=== PATIENT | male | born 1955 | race Caucasian/White ===

== ENCOUNTER → 2016-11-17 | Outpatient (CLI) | payer OTHER ==
[~2016-11-17] MED LIST: ACET-1311 PO; ARIP30TA3 PO; ATV/1 PO; CALC200T PO; CARB200T PO; CGN1 PO; CLON2TAB3 PO; CTP/1 PO; LEVO200T6 PO; LEVO75TA5 PO; LITH300T2 PO; MAGN400T6 PO; MAGNSUS5 PO; MULT-506 PO; NEOM-25 TP; POLY335019 PO; PRLSR20 PO; SENN-65 PO; THIO100T PO; [UNRECOGNIZED DRUG - OTHER] PO
[2016-11-17 11:15] LABS: BASO % 0.4 %; BASO ABS # 0.02 K/uL (0-0.2); COMPLETE YES; EOS % 4.2 %; HEMATOCRIT 36.1 % (42-52); IG% 0.6 %; LYMPH % 20.5 %; LYMPH ABS # 1.03 K/uL (1.2-3.4); MEAN CORPUSCULAR HEMOGLOBIN 31.5 pg (25-34); MEAN CORPUSCULAR HGB CONC 33.5 g/dl (32-36); MEAN PLATELET VOLUME 10.3 fL (7.4-10.4); MONO % 11.1 %; NEUT % 63.2 %; PLATELET COUNT 189 K/uL (130-400); RED BLOOD COUNT 3.84 M/uL (4.7-6.1); WHITE BLOOD COUNT 5.03 K/uL (4.8-10.8)
[2016-11-17 11:27] LABS: ALT/SGPT 29 U/L (12-78); AST/SGOT 12 U/L (15-37); BLOOD UREA NITROGEN 17 mg/dl (7-18); BUN/CREATININE RATIO 14.4 (10-20); CALCIUM 9.2 mg/dl (8.5-10.1); CARBON DIOXIDE 29 mmol/L (21-32); CHLORIDE 107 mmol/L (98-107); GLUCOSE 100 mg/dl (70-99); SODIUM 144 mmol/L (136-145)
[2016-11-17 11:30] LABS: ALB/GLOB RATIO 1.1 (0.9-2); ALKALINE PHOSPHATASE 61 U/L (45-117)
[2016-11-17 11:35] LABS: LITHIUM 0.7 mMOL/L (0.6-1.2)
== END | disposition home or self-care (01) ==
LOC: C.LABBC 08:15
PROVIDERS: ATTEND Psychiatry & Neurology Psychiatry
DX: F20.9 Schizophrenia, unspecified (principal); F42.9 Obsessive-compulsive disorder, unspecified; D84.9 Immunodeficiency, unspecified

== ENCOUNTER → 2017-08-02 | Outpatient (CLI) | payer OTHER ==
[~2017-08-02] MED LIST changes: +BENZ-89 PO; -CGN1 PO
[2017-08-02 11:11] LABS: BASO % 0.5 %; BASO ABS # 0.02 K/uL (0-0.2); COMPLETE YES; EOS % 6.6 %; HEMATOCRIT 36.8 % (42-52); IG% 0.9 %; LYMPH % 22.2 %; LYMPH ABS # 0.97 K/uL (1.2-3.4); MEAN CELL VOLUME 96.1 fL (80-100); MEAN CORPUSCULAR HEMOGLOBIN 31.3 pg (25-34); MEAN CORPUSCULAR HGB CONC 32.6 g/dl (32-36); MEAN PLATELET VOLUME 10.2 fL (7.4-10.4); MONO % 8.5 %; NEUT % 61.3 %; PLATELET COUNT 176 K/uL (130-400); RED BLOOD COUNT 3.83 M/uL (4.7-6.1); WHITE BLOOD COUNT 4.37 K/uL (4.8-10.8)
[2017-08-02 11:30] LABS: BLOOD UREA NITROGEN 24 mg/dl (7-18); CARBON DIOXIDE 31 mmol/L (21-32); CHLORIDE 105 mmol/L (98-107); CREATININE 1.16 mg/dl (0.60-1.40); POTASSIUM 3.8 mmol/L (3.5-5.1); SODIUM 140 mmol/L (136-145)
== END | disposition home or self-care (01) ==
LOC: C.LABBC 08:19
PROVIDERS: ATTEND Psychiatry & Neurology Psychiatry
DX: E03.9 Hypothyroidism, unspecified (principal); F20.9 Schizophrenia, unspecified; F42.9 Obsessive-compulsive disorder, unspecified

== ENCOUNTER → 2017-09-04 | Outpatient (CLI) | payer OTHER ==
[2017-09-04 11:06] LABS: BASO % 0.6 %; BASO ABS # 0.03 K/uL (0-0.2); COMPLETE YES; EOS % 6.2 %; HEMATOCRIT 37.8 % (42-52); IG% 0.6 %; LYMPH % 20.6 %; LYMPH ABS # 1.06 K/uL (1.2-3.4); MEAN CELL VOLUME 95.2 fL (80-100); MEAN CORPUSCULAR HEMOGLOBIN 31.7 pg (25-34); MEAN CORPUSCULAR HGB CONC 33.3 g/dl (32-36); MEAN PLATELET VOLUME 10.5 fL (7.4-10.4); MONO % 10.1 %; NEUT % 61.9 %; PLATELET COUNT 181 K/uL (130-400); RED BLOOD COUNT 3.97 M/uL (4.7-6.1); WHITE BLOOD COUNT 5.14 K/uL (4.8-10.8)
[2017-09-04 11:24] LABS: ALT/SGPT 32 U/L (12-78); BLOOD UREA NITROGEN 19 mg/dl (7-18); BUN/CREATININE RATIO 15.5 (10-20); CALCIUM 9.1 mg/dl (8.5-10.1); CARBON DIOXIDE 30 mmol/L (21-32); CHLORIDE 103 mmol/L (98-107); CREATININE 1.19 mg/dl (0.60-1.40); GLUCOSE 129 mg/dl (70-99); POTASSIUM 3.8 mmol/L (3.5-5.1); SODIUM 139 mmol/L (136-145)
[2017-09-04 11:35] LABS: ALKALINE PHOSPHATASE 78 U/L (45-117); AST/SGOT 16 U/L (15-37)
== END | disposition home or self-care (01) ==
LOC: C.LABBC 08:30
PROVIDERS: ATTEND Physician Assistant Medical
DX: I10 Essential (primary) hypertension (principal); E03.9 Hypothyroidism, unspecified; R60.9 Edema, unspecified

== ENCOUNTER → 2017-11-14 | Outpatient (CLI) | payer OTHER ==
[2017-11-14 14:05] LABS: BLOOD UREA NITROGEN 17 mg/dl (7-18); CALCIUM 9.8 mg/dl (8.5-10.1); CARBON DIOXIDE 28 mmol/L (21-32); CREATININE 1.33 mg/dl (0.60-1.40); GLUCOSE 100 mg/dl (70-99); POTASSIUM 4.1 mmol/L (3.5-5.1); SODIUM 141 mmol/L (136-145)
== END | disposition home or self-care (01) ==
LOC: C.LABBC 08:46
PROVIDERS: ATTEND Physician Assistant Medical
DX: Z00.00 Encounter for general adult medical examination without abnormal findings (principal); N28.9 Disorder of kidney and ureter, unspecified; I10 Essential (primary) hypertension

== ENCOUNTER 2018-01-09 13:16 | Inpatient (IN) | payer OTHER ==
[~2018-01-09] VITALS: Ht 182.9 cm; Wt 78.1 kg
[2018-01-09] MEDS ORDERED: LORAZEPAM 2 MG/ML 1 ML VIAL IM STA (13:27)
[2018-01-09] MEDS ORDERED: HALOPERIDOL LACTATE 5 MG/ML 1 ML VIAL IM STA (13:27)
[2018-01-09] MEDS ORDERED: SODIUM CHLORIDE 0.9% 1000ML 500 ML IV STA (13:27)
--- NOTE | 2018-01-09 13:35 | EMERGENCY ROOM VISIT NOTE ---
History Report prepared by Misael: Ever Fall Under the Supervision of: Dr. Gerber Garcia M.D. First contact with patient: 13:20 Chief Complaint: MENTAL HEALTH EVALUATION History of Present Illness This HPI is significantly limited secondary to the patient's intellectual disability, MR. The patient is a 62 year old male who presents to the Emergency Room for increased combativeness and aggression per his home health nurses. The nursing staff states that he has been refusing to take his medications. The home nurses also mentioned that he vomited this morning, and appeared to be off balance, weak, and has been lethargic recently. These symptoms are unusual as compared to his baseline. The patient does live in his own apartment, but has home nurses who are there 07/05. Source of History: detention notes, nursing staff History Limited By: other ( intellectual disability, MR) Onset: This morning Quality: other (Combativeness/aggression) Associated Symptoms: + vomiting Review of Systems ROS unobtainable secondary to intellectual disability and MR. Past Medical & Surgical Medical Problems: (1) Encephalopathy (2) Traumatic brain injury Family History Unobtainable due to AMS Social History Smoking Status: Never Smoker Marital Status: single Occupation Status: disabled Current/Historical Medications Scheduled Benztropine Mesylate (Cogentin), 1 MG PO BID Carbamazepine (Tegretol), 600 MG PO BID Clonazepam (Klonopin), 2 MG PO BID Clonidine Hcl (Catapres), 0.1 MG PO BID Levothyroxine Sodium (Levothyroxine Sodium), 200 MCG PO DAILY Levothyroxine Sodium (Levothyroxine Sodium), 75 MCG PO DAILY Wynot Carbonate (Wynot Carbonate), 600 MG PO QPM Magnesium Oxide (Mag-Ox), 400 MG PO BIDM Multivitamin (Multivitamin), 1 TAB PO DAILY Olanzapine (Zyprexa), 20 MG PO DAILY Omeprazole (Prilosec), 20 MG PO DAILY Senna/Docusate Sod (Senokot S), 1 TAB PO BID Thioridazine Hcl (Mellaril), 100 MG PO BID Thioridazine Hcl (Mellaril), 500 MG PO QPM Scheduled PRN Acetaminophen (Tylenol), 650 MG PO Q4 PRN for Pain or Fever Lorazepam (Ativan), 1.5 MG PO Q4 PRN for Anxiety/Agitation Uzslwafb-Ywwpgknzsc-Qkhjdyxxf (Triple Antibiotic), 1 APPL TP BID PRN for PREVENTION Allergies Coded Allergies: Chlorpromazine (Verified Allergy, Unknown, unk, 01/09/18) Gabapentin (Verified Allergy, Unknown, unk, 01/09/18) Lactose Intolerance (GI) (Verified Allergy, Unknown, unk, 01/09/18) Levofloxacin (Verified Allergy, Unknown, unk, 01/09/18) Oxcarbazepine (Verified Allergy, Unknown, unk, 01/09/18) Valproic Acid (Verified Allergy, Unknown, unk, 01/09/18) Physical Exam Vital Signs Date Time Temp Pulse Resp B/P (MAP) Pulse Ox O2 Delivery O2 Flow Rate FiO2 01/09/18 17:23 80 24 123/62 95 Room Air 01/09/18 16:24 74 19 98/54 92 Room Air 01/09/18 15:11 83 21 137/75 94 Room Air 01/09/18 14:14 88 01/09/18 14:12 Room Air 01/09/18 13:22 37.3 85 18 112/85 98 Room Air Physical Exam GENERAL: Patient is in no acute distress. HEENT: No acute trauma, normocephalic atraumatic, mucous membranes moist, no nasal congestion, no scleral icterus. NECK: No stridor, no adenopathy, no meningismus, trachea is midline. LUNGS: Clear to auscultation bilaterally, no wheeze, no rhonchi, breath sounds equal. HEART: Without murmurs gallops or rubs, regular rate and rhythm. ABDOMEN: Soft, nontender, bowel sounds positive, no hernias, no peritonitis. EXTREMITIES: No cyanosis or edema, full range of motion of all the joints without pain or difficulty, no signs for acute trauma. NEUROLOGIC: Mental retardation noted. Moving all extremities. Patient yells; "OK " over and over again. He is occasionally aggressive towards staff. SKIN: No rash, no jaundice, no diaphoresis. Medical Decision & Procedures Laboratory Results Test 01/09/18 13:55 01/09/18 14:25 Immature Granulocyte % (Auto) 0.8 % White Blood Count 5.14 K/uL (4.8-10.8) Red Blood Count 3.53 M/uL (4.7-6.1) Hemoglobin 11.2 g/dL (14.0-18.0) Hematocrit 33.0 % (42-52) Mean Corpuscular Volume 93.5 fL (80-100) Mean Corpuscular Hemoglobin 31.7 pg (25-34) Mean Corpuscular Hemoglobin Concent 33.9 g/dl (32-36) Platelet Count 147 K/uL (130-400) Mean Platelet Volume 9.4 fL (7.4-10.4) Neutrophils (%) (Auto) 78.0 % Lymphocytes (%) (Auto) 13.4 % Monocytes (%) (Auto) 7.0 % Eosinophils (%) (Auto) 0.6 % Basophils (%) (Auto) 0.2 % Neutrophils # (Auto) 4.01 K/uL (1.4-6.5) Lymphocytes # (Auto) 0.69 K/uL (1.2-3.4) Monocytes # (Auto) 0.36 K/uL (0.11-0.59) Eosinophils # (Auto) 0.03 K/uL (0-0.5) Basophils # (Auto) 0.01 K/uL (0-0.2) Immature Granulocyte # (Auto) 0.04 K/uL (0.00-0.02) Magnesium Level 2.4 mg/dl (1.8-2.4) Total Creatine Kinase 624 U/L (39-308) Troponin I < 0.015 ng/ml (0-0.045) Thyroid Stimulating Hormone (TSH) 0.987 uIu/ml (0.300-4.500) Free Thyroxine 1.06 ng/dl (0.80-1.60) Wynot Level 0.9 mMOL/L (0.6-1.2) Urine Color YELLOW Urine Appearance CLEAR (CLEAR) Urine pH 6.5 (4.5-7.5) Urine Specific Sage 1.010 (1.000-1.030) Urine Protein TRACE (NEG) Urine Glucose (UA) NEG (NEG) Urine Ketones TRACE (NEG) Urine Occult Blood NEG (NEG) Urine Nitrite NEG (NEG) Urine Bilirubin NEG (NEG) Urine Urobilinogen NEG (NEG) Urine Leukocyte Esterase NEG (NEG) Urine RBC 0-4 /hpf (0-4) Urine WBC 1-5 /hpf (0-5) Urine Epithelial Cells 10-20 /lpf (0-5) Urine Bacteria NEG (NEG) Urine Mucus PRESENT (NONE PRSENT) Urine Opiates Screen NEG (NEG) Urine Methadone, Qualitative NEG (NEG) Urine Barbiturates NEG (NEG) Urine Phencyclidine (PCP) Level NEG (NEG) Ur Amphetamine/Methamphetamine NEG (NEG) MDMA (Ecstasy) Screen NEG (NEG) Urine Benzodiazepines Screen NEG (NEG) Urine Cocaine Metabolite NEG (NEG) Urine Marijuana (THC) NEG (NEG) Laboratory results reviewed by me. Medications Administered Medications (Trade) Dose Ordered Sig/Amita Route Start Time Stop Time Status Last Admin Dose Admin Sodium Chloride 500 ml @ 999 mls/hr Q31M STAT IV 01/09/18 13:27 01/09/18 13:57 DC 01/09/18 14:10 999 MLS/HR Haloperidol Lactate (Haldol Inj) 5 mg NOW STAT IM 01/09/18 13:27 01/09/18 13:37 DC 01/09/18 13:52 5 MG Lorazepam (Ativan Inj) 1 mg NOW STAT IM 01/09/18 13:27 01/09/18 13:37 DC 01/09/18 13:52 1 MG Ceftriaxone Sodium (Rocephin Inj) 1 gm NOW STAT IV 01/09/18 15:20 01/09/18 15:21 DC 01/09/18 15:43 1 GM Sodium Chloride 500 ml @ 999 mls/hr Q31M STAT IV 01/09/18 16:50 01/09/18 17:20 DC 01/09/18 17:05 999 MLS/HR ECG Per My Interpretation Indication: altered mental status Rate (beats per minute): 83 Rhythm: normal sinus Findings: other (Baseline artifact present, no SHAE, no PVCs) ED Course 1323: The patient was evaluated in room A7. A complete history and physical exam was performed. Patient did receive 5 mg of IM Haldol, 1 mg of IM Ativan. Patient received IV saline, 2/500 cc boluses. He received IV ceftriaxone 1 g. I reassessed the patient, he is resting and more cooperative. The patient does require hospitalization. I discussed the case with the on- call [facility] hospitalist. Medical Decision Differential diagnosis includes; Stroke, infection, UTI, bowel obstruction, anaemia, electrolyte imbalance, pneumonia, viral illness, medication noncompliance. There is no leukocytosis or concerning anemia. No significant electrolyte abnormality. There was a mild elevation to the creatinine, this is likely consistent with some dehydration. No evidence for hepatitis. The patient appears to be in a euthyroid state. Wynot level is not toxic. Urine tox is negative. Urinalysis does not show evidence for infection. Blood cultures are pending. Chest film does not show pneumonia or CHF, no mediastinal widening. Brain CT shows no acute bleed or mass-effect, a sinusitis was seen. Abdominal and pelvis CT show some constipation, no bowel obstruction. EKG shows a sinus rhythm, no acute ischemia. Cardiac enzyme testing 1 is not consistent with acute cardiac injury. The patient does present with a change in mental status, some weakness and vomiting. He did become somewhat uncooperative here and was aggressive. He received IM Haldol and IM Ativan. He received 2 boluses of IV saline, 500 cc. He did receive IV ceftriaxone for the diagnosis of sinusitis. The patient requires hospitalization. The cause for the mental status decline is unclear although, the sinusitis and dehydration could be the cause. I did discuss the case with case management. The on-call hospitalist was consulted and we discussed the case. Medication Reconcilliation Current Medication List: was personally reviewed by me Blood Pressure Screening Patient's blood pressure: Normal blood pressure Impression Primary Impression: Change in mental status Additional Impressions: Dehydration Vomiting Weakness Sinusitis Scribe Attestation The scribe's documentation has been prepared under my direction and personally reviewed by me in its entirety. I confirm that the note above accurately reflects all work, treatment, procedures, and medical decision making performed by me. Departure Information Dispostion Being Evaluated By Hospitalist Referrals Liberty Graff PA-C (PCP) Patient Instructions My [facility] Problem Qualifiers
[2018-01-09] MEDS ORDERED: ZYP20 PO (14:01)
[2018-01-09 14:18] LABS: BASO % 0.2 %; BASO ABS # 0.01 K/uL (0-0.2); EOS % 0.6 %; EOS ABS # 0.03 K/uL (0-0.5); HEMOGLOBIN 11.2 g/dL (14.0-18.0); IG# 0.04 K/uL (0.00-0.02); LYMPH % 13.4 %; LYMPH ABS # 0.69 K/uL (1.2-3.4); MEAN CELL VOLUME 93.5 fL (80-100); MEAN CORPUSCULAR HEMOGLOBIN 31.7 pg (25-34); MEAN CORPUSCULAR HGB CONC 33.9 g/dl (32-36); MEAN PLATELET VOLUME 9.4 fL (7.4-10.4); MONO ABS # 0.36 K/uL (0.11-0.59); NEUT ABS # 4.01 K/uL (1.4-6.5); PLATELET COUNT 147 K/uL (130-400); RED CELL DISTRIBUTION WIDTH SD 44.8 fL (36.4-46.3); WHITE BLOOD COUNT 5.14 K/uL (4.8-10.8)
--- NOTE | 2018-01-09 14:31 | DIAGNOSTIC IMAGING REPORT ---
CHEST ONE VIEW PORTABLE CLINICAL HISTORY: 62 years-old Male presenting with EVALUATE ALTERED MENTAL STATUS/WEAKNESS. TECHNIQUE: Portable upright AP view of the chest was obtained. COMPARISON: 04/2016. FINDINGS: Atherosclerosis of aortic arch. Cardiac silhouette enlarged. Chronic elevation of the left hemidiaphragm. Pulmonary vascular prominence. Minimal basilar opacities. No pleural effusion or pneumothorax. Degenerative changes of the thoracic spine. Upper abdomen normal. IMPRESSION: 1. Cardiomegaly with pulmonary vascular prominence suggesting volume overload. No nancy pulmonary edema. 2. Bibasilar atelectasis. Electronically signed by: Yoel Chen M.D. 01/09/2018 2:30 PM Dictated Date/Time: 01/09/2018 2:29 PM
[2018-01-09 15:03] LABS: BLOOD UREA NITROGEN 20 mg/dl (7-18); GLUCOSE 101 mg/dl (70-99)
[2018-01-09 15:04] LABS: ALBUMIN 3.4 gm/dl (3.4-5.0); CALCIUM 8.6 mg/dl (8.5-10.1); CARBON DIOXIDE 29 mmol/L (21-32); CREATININE 1.51 mg/dl (0.60-1.40); POTASSIUM 3.8 mmol/L (3.5-5.1); SODIUM 137 mmol/L (136-145); TOTAL PROTEIN 7.1 gm/dl (6.4-8.2)
[2018-01-09 15:05] LABS: ALKALINE PHOSPHATASE 63 U/L (45-117); ALT/SGPT 32 U/L (12-78); AST/SGOT 33 U/L (15-37)
--- NOTE | 2018-01-09 15:09 | DIAGNOSTIC IMAGING REPORT ---
HEAD WITHOUT CONTRAST (CT) CLINICAL HISTORY: 62 years-old Male presenting with change in ms. TECHNIQUE: Multidetector CT imaging of the head was performed without the use of intravenous contrast. IV contrast: None. A dose lowering technique was used consistent with the principles of ALARA (as low as reasonably achievable). COMPARISON: None. CT DOSE (mGy.cm): The estimated cumulative dose is 821.00 mGycm. FINDINGS: [employer] topogram: Unremarkable. Proportional ventricular and sulcal prominence, likely age-related parenchymal volume loss. Brain parenchyma normal in appearance with preserved gonzalez-white differentiation. No mass effect or midline shift. No hemorrhage or acute territorial infarct. No extra-axial fluid collection. Mild mucosal thickening in the ethmoid air cells. Few aerated secretions in the left maxillary sinus. Calvarium intact. IMPRESSION: 1. No acute intracranial abnormality. 2. Aerated secretions in the left maxillary sinus with mucosal thickening in ethmoid air cells raises concern for acute sinusitis. Electronically signed by: Yoel Chen M.D. 01/09/2018 3:07 PM Dictated Date/Time: 01/09/2018 3:05 PM
--- NOTE | 2018-01-09 15:14 | DIAGNOSTIC IMAGING REPORT ---
ABD/PELVIS NO IV OR ORAL CONT CT DOSE: 1177.18 mGycm HISTORY: Pain ABD PAIN, POSSIBLE OBSTRUCTION, NO CONTRAST TECHNIQUE: Multiaxial CT images of the abdomen and pelvis were performed without contrast. A dose lowering technique was utilized adhering to the principles of ALARA. COMPARISON STUDY: None. FINDINGS: Small bilateral pleural effusions. Superimposed bibasilar interstitial and atelectatic change. There is a ventral hernia containing a segment of transverse colon. This is a nonobstructive finding. There is a right scrotal hernia containing at the cecum and appendix. This appears to be a nonobstructive finding. There is increased fecal load within the sigmoid descending and distal transverse colon. This consistent with a component of fecal stasis. No evidence for small bowel distention. Kidneys negative for hydronephrosis. IMPRESSION: 1. Increased fecal load within the sigmoid, descending, as well as distal transverse colon consistent with fecal stasis.. 2. Right scrotal hernia containing the cecum and appendix which is considered nonobstructing. 3. Small periumbilical and/or ventral hernia containing a short segment of transverse colon also considered to be nonobstructing. 4. Small bilateral pleural effusions with bibasilar atelectatic change. The above report was generated using voice recognition software. It may contain grammatical, syntax or spelling errors. Electronically signed by: Abdirahman Mckenzie M.D. 01/09/2018 3:12 PM Dictated Date/Time: 01/09/2018 3:06 PM
[2018-01-09] MEDS ORDERED: CEFTRIAXONE SOD INJ 1 GM ADDVIAL IV STA (15:20)
[2018-01-09] MEDS ORDERED: SODIUM CHLORIDE 0.9% 500ML 500 ML IV STA (16:50)
[2018-01-09 17:23] VITALS: O2SAT 95
[2018-01-09] MEDS ORDERED: ACETAMINOPHEN 325 MG TAB PO PRN (21:15)
[2018-01-09] MEDS: SODIUM CHLOR 0.45% + 20MEQ KCL 1,000 ML IV SCH (21:15)
--- NOTE | 2018-01-09 21:27 | HISTORY & PHYSICAL EXAMINATION ---
DATE OF ADMISSION: 01/09/2018 CHIEF COMPLAINT: Altered mental status. HISTORY OF PRESENT ILLNESS: History is unobtainable from the patient. His caregiver, while he is with the man generally 5 days a week, has not been with him until this evening for about the last 3 days, so he is not able to directly glean a lot, although he is very helpful overall. The ER does not have a lot of direct information because of the limitations above, and with the computer system being down, I am unable to access any old records, inpatient, outpatient or otherwise. He apparently over the last 2 or 3 weeks has been more tired. There has maybe been a slight decrease in his p.o. intake but the caregiver notes he never refuses water and then apparently today he was very tired, very sleepy and not acting like himself, so he was brought to the ER for further evaluation. Here, initially he was sleepy and fatigued and not responding well but then became very agitated and actually had to have Haldol and Ativan for chemical sedation for his safety and now is very sedate, although he does wake up during exam and swats at me a little bit and grumbles unintelligibly some. The unintelligible grumbling and the swatting the caregiver notes are not surprising given his baseline. REVIEW OF SYSTEMS: Otherwise unobtainable except for as above. PAST MEDICAL HISTORY: Obtainable only by the records provided by his caregiver, includes schizophrenia, hypothyroidism, GERD, OCD, pica, moderate mental retardation and constipation. MEDICATIONS: Omeprazole 20 mg daily, Synthroid 275 mcg daily, Catapres 0.1 p.o. b.i.d., Mag-Ox 400 mg daily, multivitamin daily, Klonopin 2 mg b.i.d., Tegretol 600 mg in the morning and 800 in the evening, Colace/senna 8.6/50 p.o. b.i.d., Mellaril 100 mg 8 a.m., 100 mg 2 p.m. and 500 mg 8 p.m., Cogentin 100 mg b.i.d., olanzapine 20 mg daily, Os-Estevan plus D b.i.d., lithium 600 mg at bedtime, Tylenol 650 q. 4 p.r.n., milk of magnesia daily p.r.n., lorazepam 1.5 mg q. 4 hours p.r.n. anxiety. SOCIAL HISTORY: The best that I can obtain is that he lives at home with constant caregiver support, unable to obtain prior history as far as smoking or alcohol use. FAMILY HISTORY: Entirely unobtainable. SURGICAL HISTORY: Unobtainable, although at least his medical summary sheet provided by the caregiver does not list any significant surgical problems. ALLERGIES: LISTED DEPAKOTE, LACTULOSE, LEVAQUIN, NEURONTIN, THORAZINE AND TRILEPTAL. PHYSICAL EXAMINATION: VITAL SIGNS: Stable, please see the chart. HEENT: Normocephalic, atraumatic. Mucous membranes may be slightly dry. CARDIOVASCULAR: Regular without rubs, murmurs or gallops. LUNGS: Clear to auscultation bilaterally. No rales, rhonchi or wheezes, with good effort. ABDOMEN: Soft, nondistended, nontender, no masses or organomegaly. EXTREMITIES: Without cyanosis, clubbing or edema. No calf tenderness. SKIN: Shows no rashes, no pallor or icterus. NEUROLOGIC: Shows cranial nerves II-XII to be grossly intact. Gross motor and sensory are intact. He has good resting muscle tone, although he tenses up voluntarily at times during exam, it is not constant, he is not rigid, and his neck is supple whenever he is not resisting. MUSCULOSKELETAL: Exam yields no gross lesions. MENTAL STATUS: Unable to be assessed, otherwise as above. LABORATORIES AND DIAGNOSTICS: Not directly available for my review at the time of dictation due to the computer system being down. I reviewed extensively what the ER doc was able to sign out and obviously full review will be available shortly. However, head and chest imaging were negative. His creatinine was 1.5 which is higher than his baseline and the remainder of his lab workup was unremarkable. ASSESSMENT AND PLAN: 1. Altered mental status. This appears most likely to be a metabolic encephalopathy given his poor p.o. intake and his creatinine being higher than baseline with no other significant findings of infection or medication changes. It is most likely a metabolic encephalopathy due to dehydration. Start him on gentle IV fluids, follow up labs in the morning, follow serial exams. Obviously vigilance for any type of signs or symptoms of infection, ongoing serial exams, follow up on his blood and urine cultures, and follow his CBC. 2. Psychosis. Likely his psychosis and his baseline of mental retardation make it more likely that he would be able to get encephalopathic with a more minor insult. We will continue his home meds. 3. Hypertension. Continue home meds. 4. Hypothyroidism. Continue home meds. 5. Deep venous thrombosis prophylaxis. We will follow how he does. Hopefully early ambulation, but if he is not moving well by tomorrow, we will want to initiate subcu Lovenox or subcu heparin depending on his creatinine. 6. Gastroesophageal reflux disease. Continue omeprazole.
[2018-01-10] MEDS: CLONIDINE HCL 0.1 MG TAB PO SCH ×3 (00:21→20:00)
[2018-01-10] MEDS: BENZTROPINE MESYLATE 1 MG TAB PO SCH ×3 (00:22→20:10)
[2018-01-10] MEDS: CLONAZEPAM 1 MG TAB PO SCH ×4 (00:22→20:09)
[2018-01-10] MEDS: DOCUSATE SODIUM/SENNA 50/8.6MG TAB PO SCH ×3 (00:22→20:11)
[2018-01-10] MEDS: LITHIUM CARBONATE 300 MG TAB PO SCH ×2 (00:22→02:01)
[2018-01-10] MEDS: CARBAMAZEPINE 200 MG TAB PO SCH ×3 (00:22→08:18)
[2018-01-10] MEDS ORDERED: LORAZEPAM 2 MG/ML 1 ML VIAL IV PRN (02:00)
[2018-01-10] MEDS ORDERED: OLANZAPINE ZYDIS 5 MG ORALLY DIS. TAB PO PRN (02:00)
[2018-01-10] MEDS ORDERED: LORAZEPAM INJ 1 MG in SYRINGE 0.5 ML IV PRN (03:45)
[2018-01-10] MEDS: MAGNESIUM OXIDE 400 MG TAB PO SCH (08:16)
[2018-01-10] MEDS: LEVOTHYROXINE 137 MCG TAB PO SCH (08:16)
[2018-01-10] MEDS: PANTOprazole SOD 40 MG TAB PO SCH (08:17)
[2018-01-10] MEDS: CALCIUM 600MG + VIT D 400 IU TAB PO SCH ×2 (08:17→16:51)
[2018-01-10] MEDS: OLANZAPINE 20 MG TAB PO SCH (08:17)
[2018-01-10] MEDS: MULTIVITAMIN TAB PO SCH (08:18)
[2018-01-10] MEDS: SODIUM CHLOR 0.45% + 20MEQ KCL 1,000 ML IV SCH (08:19)
[2018-01-10] MEDS ORDERED: NURSING VERBAL MED ORDER ONE (09:15)
[2018-01-10 09:45] LABS: HEMATOCRIT 30.9 % (42-52); HEMOGLOBIN 10.5 g/dL (14.0-18.0); MEAN CELL VOLUME 93.4 fL (80-100); MEAN CORPUSCULAR HEMOGLOBIN 31.7 pg (25-34); MEAN PLATELET VOLUME 9.6 fL (7.4-10.4); PLATELET COUNT 134 K/uL (130-400); RED CELL DISTRIBUTION WIDTH CV 12.9 % (11.5-14.5); RED CELL DISTRIBUTION WIDTH SD 43.6 fL (36.4-46.3); WHITE BLOOD COUNT 5.47 K/uL (4.8-10.8)
[2018-01-10 10:10] LABS: ALT/SGPT 34 U/L (12-78); BLOOD UREA NITROGEN 14 mg/dl (7-18); CALCIUM 8.1 mg/dl (8.5-10.1); CARBON DIOXIDE 28 mmol/L (21-32); CREATININE 1.19 mg/dl (0.60-1.40); GLUCOSE 92 mg/dl (70-99); POTASSIUM 3.8 mmol/L (3.5-5.1); SODIUM 139 mmol/L (136-145)
[2018-01-10 10:13] LABS: ALKALINE PHOSPHATASE 56 U/L (45-117); AST/SGOT 38 U/L (15-37); TOTAL PROTEIN 6.5 gm/dl (6.4-8.2)
--- NOTE | 2018-01-10 12:46 | Hospitalist Progress Note ---
Hospitalist Progress Note Date of Service Jan 10, 2018. (Adrianna Bond ., PA-C) Subjective Pt evaluation today including: conversation w/ patient, physical exam, lab review, review of studies, review of inpatient medication list Patient sleeping in bed. No signs of acute distress. Did not wake due to agitation/restlessness overnight. ROS not completed due to patient's status. Architectural Design Professor at bedside States patient did not eat/drink for 24 hours and had 1 episode of vomiting. Family is not in the picture. Architectural Design Professor unsure whether agency willing to do 24/ care vs needs placement. (Adrianna Bond ., KASI-C) Medications Current Inpatient Medications Medications (Trade) Dose Ordered Sig/Amita Route Start Time Stop Time Status Last Admin Dose Admin Acetaminophen (Tylenol Tab) 650 mg Q4H PRN PO 01/09/18 21:15 02/08/18 21:14 Pantoprazole Sodium (Protonix Tab) 40 mg QAM PO 01/10/18 08:00 02/09/18 08:59 01/10/18 08:17 40 MG Levothyroxine Sodium (Synthroid Tab) 274 mcg DAILYBB PO 01/10/18 06:30 02/09/18 06:59 01/10/18 08:16 274 MCG Magnesium Oxide (Mag-Ox Tab) 400 mg DAILY PO 01/10/18 08:00 02/09/18 08:59 01/10/18 08:16 400 MG Multivitamins (Multivitamin Tab) 1 tab QAM PO 01/10/18 08:00 02/09/18 08:59 01/10/18 08:18 1 TAB Clonazepam (Klonopin Tab) 2 mg BID PO 01/09/18 21:15 02/08/18 21:14 01/10/18 08:22 2 MG Carbamazepine (Tegretol Tab) 600 mg QAM PO 01/10/18 08:00 02/09/18 08:59 01/10/18 08:18 600 MG Carbamazepine (Tegretol Tab) 800 mg HS PO 01/09/18 21:00 02/08/18 20:59 01/10/18 02:02 800 MG Senna/Docusate Sodium (Senokot S Tab) 1 tab BID PO 01/09/18 21:00 02/08/18 20:59 01/10/18 08:18 1 TAB Benztropine Mesylate (Cogentin Tab) 1 mg BID PO 01/09/18 21:00 02/08/18 20:59 01/10/18 08:16 1 MG Olanzapine (Zyprexa Tab) 20 mg DAILY PO 01/10/18 08:00 02/09/18 08:59 01/10/18 08:17 20 MG Calcium/Vitamin D (Caltrate Plus Tab) 1 tab BID17 PO 01/10/18 09:00 02/09/18 08:59 01/10/18 08:17 1 TAB [place] Carbonate ([place] Carbonate Tab) 600 mg HS PO 01/09/18 21:00 02/08/18 20:59 01/10/18 02:01 600 MG Clonidine HCl (Catapres Tab) 0.1 mg BID PO 01/09/18 21:00 02/08/18 20:59 01/10/18 08:18 0.1 MG Lorazepam (Ativan Inj) 1 mg BID PRN IV 01/10/18 02:00 02/09/18 01:59 Olanzapine (Zyprexa Zydis Od Tab) 1.25 mg HS PRN PO 01/10/18 02:00 02/09/18 01:59 Lorazepam 1 mg/ Syringe 1 ml @ 1 mls/min BID PRN IV 01/10/18 03:45 02/09/18 03:44 Thioridazine HCl (Thioridazine HCl) 100 mg 0800,1400 PO 01/10/18 14:00 02/09/18 13:59 Thioridazine HCl (Thioridazine HCl) 500 mg DAILY@2000 PO 01/10/18 20:00 02/09/18 19:59 (Adrianna Bond, KASSANDRAC) Objective Vital Signs Date Time Temp Pulse Resp B/P (MAP) Pulse Ox O2 Delivery O2 Flow Rate FiO2 01/10/18 08:00 Room Air 01/10/18 00:00 Room Air 01/09/18 17:23 80 24 123/62 95 Room Air 01/09/18 16:24 74 19 98/54 92 Room Air 01/09/18 15:11 83 21 137/75 94 Room Air 01/09/18 14:14 88 01/09/18 14:12 Room Air 01/09/18 13:22 37.3 85 18 112/85 98 Room Air (Adrianna Bond, PA-C) Physical Exam General Appearance: no apparent distress Eyes: normal inspection, PERRL ENT: hearing grossly normal Neck: supple Respiratory/Chest: lungs clear, no respiratory distress, no accessory muscle use Cardiovascular: regular rate, rhythm Abdomen: normal bowel sounds, non tender, soft Extremities: no pedal edema, no calf tenderness Neurologic/Psychiatric: + pertinent finding (sleeping ) Skin: normal color, warm/dry, no rash (Adrianna Bond, PA-C) Laboratory Results Last 24 Hours Test 01/09/18 13:55 01/09/18 14:25 01/10/18 09:07 White Blood Count 5.14 K/uL 5.47 K/uL Red Blood Count 3.53 M/uL 3.31 M/uL Hemoglobin 11.2 g/dL 10.5 g/dL Hematocrit 33.0 % 30.9 % Mean Corpuscular Volume 93.5 fL 93.4 fL Mean Corpuscular Hemoglobin 31.7 pg 31.7 pg Mean Corpuscular Hemoglobin Concent 33.9 g/dl 34.0 g/dl Platelet Count 147 K/uL 134 K/uL Mean Platelet Volume 9.4 fL 9.6 fL Neutrophils (%) (Auto) 78.0 % Lymphocytes (%) (Auto) 13.4 % Monocytes (%) (Auto) 7.0 % Eosinophils (%) (Auto) 0.6 % Basophils (%) (Auto) 0.2 % Neutrophils # (Auto) 4.01 K/uL Lymphocytes # (Auto) 0.69 K/uL Monocytes # (Auto) 0.36 K/uL Eosinophils # (Auto) 0.03 K/uL Basophils # (Auto) 0.01 K/uL RDW Standard Deviation 44.8 fL 43.6 fL RDW Coefficient of Variation 13.0 % 12.9 % Immature Granulocyte % (Auto) 0.8 % Immature Granulocyte # (Auto) 0.04 K/uL Sodium Level 137 mmol/L 139 mmol/L Potassium Level 3.8 mmol/L 3.8 mmol/L Chloride Level 103 mmol/L 107 mmol/L Carbon Dioxide Level 29 mmol/L 28 mmol/L Anion Gap 5.0 mmol/L 4.0 mmol/L Blood Urea Nitrogen 20 mg/dl 14 mg/dl Creatinine 1.51 mg/dl 1.19 mg/dl Estimated GFR () 56.2 74.9 Estimated GFR (Non- 48.5 64.6 BUN/Creatinine Ratio 13.2 12.0 Random Glucose 101 mg/dl 92 mg/dl Calcium Level 8.6 mg/dl 8.1 mg/dl Magnesium Level 2.4 mg/dl Total Bilirubin 0.3 mg/dl 0.2 mg/dl Aspartate Amino Transf (AST/SGOT) 33 U/L 38 U/L Alanine Aminotransferase (ALT/SGPT) 32 U/L 34 U/L Alkaline Phosphatase 63 U/L 56 U/L Total Creatine Kinase 624 U/L Troponin I < 0.015 ng/ml Total Protein 7.1 gm/dl 6.5 gm/dl Albumin 3.4 gm/dl 3.0 gm/dl Globulin 3.7 gm/dl 3.5 gm/dl Albumin/Globulin Ratio 0.9 0.9 Thyroid Stimulating Hormone (TSH) 0.987 uIu/ml Free Thyroxine 1.06 ng/dl [place] Level 0.9 mMOL/L Urine Color YELLOW Urine Appearance CLEAR Urine pH 6.5 Urine Specific Booker 1.010 Urine Protein TRACE Urine Glucose (UA) NEG Urine Ketones TRACE Urine Occult Blood NEG Urine Nitrite NEG Urine Bilirubin NEG Urine Urobilinogen NEG Urine Leukocyte Esterase NEG Urine RBC 0-4 /hpf Urine WBC 1-5 /hpf Urine Epithelial Cells 10-20 /lpf Urine Bacteria NEG Urine Mucus PRESENT Urine Opiates Screen NEG Urine Methadone, Qualitative NEG Urine Barbiturates NEG Urine Phencyclidine (PCP) Level NEG Ur Amphetamine/Methamphetamine NEG MDMA (Ecstasy) Screen NEG Urine Benzodiazepines Screen NEG Urine Cocaine Metabolite NEG Urine Marijuana (THC) NEG (Adrianna Bond, PAJose GuadalupeC) Assessment and Plan Patient is a 62 y/o male, with PMHx of MR, schizophrenia, HTN, hypothyroidism, and GERD, who presented to the ED because of altered mental status. Encephalopathy ?secondary to poor PO intake/JOSEP: - Admitted to med/surg - Head CT, CXR, abdominal CT w/out acute findings - Toxicology negative; [place] 0.9; UA negative; BCx pending - No s/s of infection- afebrile, all vitals stable, no WBC - IV NS + KCL @ 100 ml/hr- patient very agitated/refusing IVF and eating some, discontinued JOSEP likely from dehydration- RESOLVED: Treated w/ IVF Fecal load on CT: - Bowel regimen ordered - 1 BM so far today MR, schizophrenia: Continue Cogentin, Klonopin, [place], Ativan PRN, Zyprexa, Thioridazine, Tegretol HTN- STABLE: Continue Clonidine Hypothyroidism- TSH WNL: Continue Synthroid GERD: Protonix daily- resume Prilosec at discharge DVT prophylaxis: TEDs/SCDs, ambulation; will avoid chemical anticoagulation to avoid agitation w/ needle sticks Dispo: From home, has caretakers- CM consulted- hopeful discharge to home tomorrow w/ 07/05 caretakers (Adrianna Bond, PAJose GuadalupeC) Reviewed: Pt Seen/Exam by Me (Peri Lizarraga MD) History Physician Associate Sales Supervision Note: I interviewed and examined the patient. Discussed with KASI Bond and agree with findings and plan as documented in the note. Any exceptions or clarifications are listed here: Patient very pleasant and not agitated when I saw him. His peanut sorter states that he is pretty much back to his baseline, but had been very fatigued yesterday and that is why they were concerned. He remains afebrile, no signs or symptoms of infection, however he is not able to give a history due to his severe intellectual disability. Vitals reviewed NAD, severely kyphotic and does not make eye contact, often bends over to touch the floor and stretching come back up, a little bit restless in the bed, but calm RRR, no MGR CTAB, no wheezes crackles or rhonchi Abdomen positive bowel sounds soft nontender nondistended Extremities no edema 62-year-old male with a history of severe intellectual disability and psychiatric disorder listed as schizophrenia, but could be impulse control disorder as well -With JOSEP-resolved with IV fluids -With acute metabolic encephalopathy secondary to JOSEP-resolved -We will keep 1 more day as peanut sorter is slightly uneasy with taking him home as he is not 100% back to normal-and expect return to home with caretakers tomorrow Documented By: Peri Lizarraga (Peri Lizarraga MD)
[2018-01-10] MEDS: THIORIDAZINE HCL 100 MG PO SCH (13:05)
[2018-01-10] MEDS ORDERED: THIORIDAZINE HCL 100 MG PO SCH (20:00)
[2018-01-11] MEDS ORDERED: POLYETHYLENE (MIRALAX) 17 GM PACK PO SCH (08:00)
[2018-01-11] MEDS: THIORIDAZINE HCL 100 MG PO SCH ×2 (08:22→13:59)
[2018-01-11] MEDS: CLONAZEPAM 1 MG TAB PO SCH (08:22)
[2018-01-11] MEDS: CLONIDINE HCL 0.1 MG TAB PO SCH (08:23)
[2018-01-11] MEDS: BENZTROPINE MESYLATE 1 MG TAB PO SCH (08:23)
[2018-01-11] MEDS: CARBAMAZEPINE 200 MG TAB PO SCH (08:23)
[2018-01-11] MEDS: OLANZAPINE 20 MG TAB PO SCH (08:24)
[2018-01-11] MEDS: MULTIVITAMIN TAB PO SCH (08:24)
[2018-01-11] MEDS: LEVOTHYROXINE 137 MCG TAB PO SCH (08:24)
[2018-01-11] MEDS: PANTOprazole SOD 40 MG TAB PO SCH (08:24)
[2018-01-11] MEDS: CALCIUM 600MG + VIT D 400 IU TAB PO SCH (08:24)
[2018-01-11] MEDS: DOCUSATE SODIUM/SENNA 50/8.6MG TAB PO SCH (08:24)
[2018-01-11] MEDS: MAGNESIUM OXIDE 400 MG TAB PO SCH (08:25)
--- NOTE | 2018-01-11 08:33 | Discharge Instructions ---
Discharge Instructions Date of Service Jan 11, 2018. Admission Reason for Admission: Change Of Mental Status Discharge Discharge Diagnosis / Problem: Encephalopathy Discharge Goals Goal(s): Decrease discomfort, Improve function, Increase independence, Improve nutritional status, Learn about illness, Diagnostic testing, Therapeutic intervention, Prevent Disease Progression Activity Recommendations Activity Limitations: resume your previous activity . Instructions / Follow-Up Instructions / Follow-Up You were admitted to [facility] due to altered mental status. The cause of your symptoms was most likely due to dehydration. Please remember to maintain a well balanced diet and stay well hydrated. Resume all regular home medications as prescribed. FOLLOW-UPS: Please follow-up with your PCP within 5-7 days Please follow-up/keep all of your subspecialty appointments Current Hospital Diet Patient's current hospital diet: Regular Diet, Low Lactose Diet Discharge Diet Recommended Diet: Regular Diet, Low Lactose Diet Pending Studies Studies pending at discharge: no Laboratory Results Hemoglobin A1c Test 11/07/17 10:12 Range/Units Estimated Average Glucose 100 mg/dl Hemoglobin A1c 5.1 4.5-5.6 % Lipid Panel Test 11/07/17 10:12 Range/Units Triglycerides Level 176 H 0-150 mg/dl Cholesterol Level 163 0-200 mg/dl HDL Cholesterol 57 mg/dl Cholesterol/HDL Ratio 2.9 LDL Cholesterol, Calculated 71 mg/dl Medical Emergencies . Who to Call and When: Medical Emergencies: If at any time you feel your situation is an emergency, please call 911 immediately. . Non-Emergent Contact Non-Emergency issues call your: Primary Care Provider Call Non-Emergent contact if: you have a fever, you have any medication questions . . "Provider Documentation" section prepared by Adrianna Bond. .
--- NOTE | 2018-01-11 08:40 | Discharge Summary ---
Discharge Summary Date of Service Jan 11, 2018. Discharge Summary Admission Date: Jan 09, 2018 at 18:23 Discharge Date: Jan 11, 2018 Discharge Disposition: Home with services Principal Diagnosis: Encephalopathy Problems/Secondary Diagnoses: JOSEP likely from dehydration Fecal load on CT, h/o chronic constipation MR schizophrenia HTN hypothyroidism GERD Procedures: HEAD WITHOUT CONTRAST (CT) CLINICAL HISTORY: 62 years-old Male presenting with change in ms. TECHNIQUE: Multidetector CT imaging of the head was performed without the use of intravenous contrast. IV contrast: None. A dose lowering technique was used consistent with the principles of ALARA (as low as reasonably achievable). COMPARISON: None. CT DOSE (mGy.cm): The estimated cumulative dose is 821.00 mGycm. FINDINGS: Guest Services Manager topogram: Unremarkable. Proportional ventricular and sulcal prominence, likely age-related parenchymal volume loss. Brain parenchyma normal in appearance with preserved gonzalez-white differentiation. No mass effect or midline shift. No hemorrhage or acute territorial infarct. No extra-axial fluid collection. Mild mucosal thickening in the ethmoid air cells. Few aerated secretions in the left maxillary sinus. Calvarium intact. IMPRESSION: 1. No acute intracranial abnormality. 2. Aerated secretions in the left maxillary sinus with mucosal thickening in ethmoid air cells raises concern for acute sinusitis. Electronically signed by: Yoel Chen M.D. 01/09/2018 3:07 PM Dictated Date/Time: 01/09/2018 3:05 PM The status of this report is Signed. Draft = Not yet reviewed or approved by Radiologist. Signed = Reviewed and approved by Radiologist. CHEST ONE VIEW PORTABLE CLINICAL HISTORY: 62 years-old Male presenting with EVALUATE ALTERED MENTAL STATUS/WEAKNESS. TECHNIQUE: Portable upright AP view of the chest was obtained. COMPARISON: 04/2016. FINDINGS: Atherosclerosis of aortic arch. Cardiac silhouette enlarged. Chronic elevation of the left hemidiaphragm. Pulmonary vascular prominence. Minimal basilar opacities. No pleural effusion or pneumothorax. Degenerative changes of the thoracic spine. Upper abdomen normal. IMPRESSION: 1. Cardiomegaly with pulmonary vascular prominence suggesting volume overload. No nancy pulmonary edema. 2. Bibasilar atelectasis. Electronically signed by: Yoel Chen M.D. 01/09/2018 2:30 PM Dictated Date/Time: 01/09/2018 2:29 PM The status of this report is Signed. Draft = Not yet reviewed or approved by Radiologist. Signed = Reviewed and approved by Radiologist. ABD/PELVIS NO IV OR ORAL CONT CT DOSE: 1177.18 mGycm HISTORY: Pain ABD PAIN, POSSIBLE OBSTRUCTION, NO CONTRAST TECHNIQUE: Multiaxial CT images of the abdomen and pelvis were performed without contrast. A dose lowering technique was utilized adhering to the principles of ALARA. COMPARISON STUDY: None. FINDINGS: Small bilateral pleural effusions. Superimposed bibasilar interstitial and atelectatic change. There is a ventral hernia containing a segment of transverse colon. This is a nonobstructive finding. There is a right scrotal hernia containing at the cecum and appendix. This appears to be a nonobstructive finding. There is increased fecal load within the sigmoid descending and distal transverse colon. This consistent with a component of fecal stasis. No evidence for small bowel distention. Kidneys negative for hydronephrosis. IMPRESSION: 1. Increased fecal load within the sigmoid, descending, as well as distal transverse colon consistent with fecal stasis.. 2. Right scrotal hernia containing the cecum and appendix which is considered nonobstructing. 3. Small periumbilical and/or ventral hernia containing a short segment of transverse colon also considered to be nonobstructing. 4. Small bilateral pleural effusions with bibasilar atelectatic change. The above report was generated using voice recognition software. It may contain grammatical, syntax or spelling errors. Electronically signed by: Abdirahman Mckenzie M.D. 01/09/2018 3:12 PM Dictated Date/Time: 01/09/2018 3:06 PM The status of this report is Signed. Draft = Not yet reviewed or approved by Radiologist. Signed = Reviewed and approved by Radiologist. Medication Reconciliation Continued Medications: Acetaminophen (Tylenol) 325 Mg Tab 650 MG PO Q4 PRN for Pain or Fever, TAB Benztropine Mesylate (Cogentin) 1 Mg Tab 1 MG PO BID, TAB Carbamazepine (Tegretol) 200 Mg Tab 600 MG PO BID, TAB Clonazepam (Klonopin) 2 Mg Tab 2 MG PO BID, TAB Clonidine Hcl (Catapres) 0.1 Mg Tab 0.1 MG PO BID, TAB Levothyroxine Sodium (Levothyroxine Sodium) 200 Mcg Tab 200 MCG PO DAILY Levothyroxine Sodium (Levothyroxine Sodium) 75 Mcg Tab 75 MCG PO DAILY [place] Carbonate ([place] Carbonate) 300 Mg Tab 600 MG PO QPM, TAB Lorazepam (Ativan) 1 Mg Tab 1.5 MG PO Q4 PRN for Anxiety/Agitation, TAB Magnesium Oxide (Mag-Ox) 400 Mg Tab 400 MG PO BIDM Multivitamin (Multivitamin) Tab 1 TAB PO DAILY, TAB Kiomvecc-Kzxbeasxod-Khqrlshxg (Triple Antibiotic) 1 Oin Oin 1 APPL TP BID PRN for PREVENTION Olanzapine (Zyprexa) 20 Mg Tab 20 MG PO DAILY, TAB Omeprazole (Prilosec) 20 Mg Capcr 20 MG PO DAILY, CAP Senna/Docusate Sod (Senokot S) 1 Tab Tab 1 TAB PO BID, TAB Thioridazine Hcl (Mellaril) 100 Mg Tab 100 MG PO BID, TAB IN THE AM AND 2 PM Thioridazine Hcl (Mellaril) 100 Mg Tab 500 MG PO QPM, TAB Referrals At Discharge Follow up Referrals: Family Practice Referral - Within 1 Week with Liberty Graff PA-C Discharge Exam ROS not obtained secondary to MR Physical Exam: General Appearance: no apparent distress Eyes: normal inspection, PERRL ENT: hearing grossly normal Neck: supple Respiratory/Chest: lungs clear, no respiratory distress, no accessory muscle use Cardiovascular: regular rate, rhythm Abdomen / GI: normal bowel sounds, non tender, soft Extremities: no calf tenderness, no pedal edema Neurologic/Psychiatric: alert Skin: normal color, warm/dry, no rash Hospital Course Patient is a 62 y/o male, with PMHx of MR, schizophrenia, HTN, hypothyroidism, and GERD, who presented to the ED because of altered mental status. Encephalopathy ?secondary to poor PO intake/JOSEP- RESOLVED: - Admitted to med/surg - Head CT, CXR, abdominal CT w/out acute findings - Toxicology negative; [place] 0.9; UA negative; BCx NGTD - No s/s of infection- afebrile, all vitals stable, no WBC - IV NS + KCL @ 100 ml/hr- patient very agitated/refusing IVF and eating some, discontinued JOSEP likely from dehydration- RESOLVED: Treated w/ IVF Fecal load on CT, h/o chronic constipation: Bowel regimen ordered- continue outpatient bowel regimen MR, schizophrenia: Continue Cogentin, Klonopin, [place], Ativan PRN, Zyprexa, Thioridazine, Tegretol HTN- STABLE: Continue Clonidine Hypothyroidism- TSH WNL: Continue Synthroid GERD: Protonix daily- resume Prilosec at discharge DVT prophylaxis: TEDs/SCDs, ambulation; will avoid chemical anticoagulation to avoid agitation w/ needle sticks Dispo: Discharge to home w07/05 caretakers Total Time Spent: Greater than 30 minutes This includes examination of the patient, discharge planning, medication reconciliation, and communication with other providers. Discharge Instructions Please refer to the electronic Patient Visit Report (Discharge Instructions) for additional information. Follow-Up Please follow-up with your PCP within 5-7 days Please follow-up/keep all of your subspecialty appointments Additional Copies To Liberty Graff PA-C Reviewed: Pt Seen/Exam by Me History Physician Exchange Floor Manager Supervision Note: I interviewed and examined the patient. Discussed with KASI Bond and agree with findings and plan as documented in the note. Any exceptions or clarifications are listed here: Caretakers report he is completely back to his baseline this morning. Patient is anxious for discharge. He moved his bowels yesterday Vitals reviewed NAD, severely kyphotic and does not make eye contact, often bends over to touch the floor and stretching come back up, a little bit restless in the bed, but calm RRR, no MGR CTAB, no wheezes crackles or rhonchi Abdomen positive bowel sounds soft nontender nondistended Extremities no edema 62-year-old male with a history of severe intellectual disability and psychiatric disorder listed as schizophrenia, but could be impulse control disorder as well -With JOSEP-resolved with IV fluids -With acute metabolic encephalopathy secondary to JOSEP-resolved -With chronic constipation-perhaps this contributed to his altered mental status as well-he had a bowel movement yesterday and now symptoms are resolved -Stable for discharge home with close PCP follow-up Documented By: Peri Lizarraga
[2018-01-11 09:03] VITALS: BP 123/62; PULSE 80; TEMP 37.3; O2SAT 95
[2018-01-11] MEDS ORDERED: LORAZEPAM 1 MG TAB PO PRN (14:30)
[2018-01-11] MEDS ORDERED: NURSING VERBAL MED ORDER ONE (14:30)
== END 2018-01-11 15:14 | disposition home or self-care (01) | DRG 682 ==
LOC: EDBD 13:16 → C.EDA 13:17 → C.4E 18:23
PROVIDERS: ADMIT Family Medicine; ATTEND Family Medicine
DX: N17.9 Acute kidney failure, unspecified (principal); G93.41 Metabolic encephalopathy; F20.89 Other schizophrenia; F71 Moderate intellectual disabilities; E86.0 Dehydration; J32.9 Chronic sinusitis, unspecified; E03.9 Hypothyroidism, unspecified; K21.9 Gastro-esophageal reflux disease without esophagitis; F42.8 Other obsessive-compulsive disorder; K59.00 Constipation, unspecified; I10 Essential (primary) hypertension; F63.9 Impulse disorder, unspecified